=== PATIENT | female | born 1960 | race Caucasian/White ===

== ENCOUNTER 2020-02-27 04:46 | Outpatient (CLI) | payer BC, SELFPAY ==
[2020-02-27 12:59] LABS: Abs Immature Grans 0.02 10^3/uL (0.0-0.06); Absolute Basophil Count 0.03 10^3/uL (0.0-0.2); Absolute Eosinophil Count 0.11 10^3/uL (0.0-0.7); Absolute Lymphocyte Count 1.23 10^3/uL (1.2-3.4); Absolute Monocyte Count 0.35 10^3/uL (0.1-0.8); Absolute Neutrophil Count 4.09 10^3/uL (1.2-6.7); Basophils % 0.5; Eosinophils % 1.9; HCT 39.5 % (36.0-46.0); HGB 12.8 g/dL (11.2-15.7); Immature Grans % 0.3; Lymphocytes % 21.1; MCH 30.3 pg (27.0-33.0); MCHC 32.4 % (32.0-36.0); MCV 93.4 fL (80-95); MPV 9.6 fL (8.0-11.0); Neutrophils % 70.2; Nucleated RBC 0 %; Platelet Count 229 10^3/uL (130-400); RBC 4.23 10^6/uL (3.93-5.22); RDW 14.2 % (11.7-14.6); RDW-SD 47.8 fL; WBC 5.83 10^3/uL (4.4-10.8)
[2020-02-27 13:27] LABS: ALT 93 U/L (14-59); AST 68 U/L (15-37); Albumin 3.9 g/dL (3.4-5.0); Alkaline Phosphatase 134 U/L (46-116); Anion Gap 4.9 mmol/L (3-11); BUN 19 mg/dL (7-18); Bilirubin, Total 0.5 mg/dL (0.2-1.0); C-Reactive Protein 0.44 mg/dL (0.0-0.3); CO2 29.1 mmol/L (21.0-32.0); CREATININE 0.66 mg/dL (0.55-1.02); Calcium 9.1 mg/dL (8.5-10.1); Chloride 107 mmol/L (98-107); Glucose 82 mg/dL (74-106); Potassium 5.1 mmol/L (3.5-5.1); Sodium 141 mmol/L (136-145); Total Protein 7.2 g/dL (6.4-8.2)
[2020-02-27 14:15] LABS: ESR 37 mm/hr (0-30)
== END 2020-02-27 05:06 ==
PROVIDERS: PCP Emergency Medicine; Visit Provider Internal Medicine Rheumatology
DX: Z79.899 Other long term (current) drug therapy (principal)
CPT/HCPCS: 36415; 80053; 85652; 85025; 86140

== ENCOUNTER 2020-12-05 13:51 | Outpatient (CLI) | payer BC, SELFPAY ==
[2020-12-05 13:17] LABS: C-Reactive Protein 0.18 mg/dL (0.0-0.3)
[2020-12-05 15:45] LABS: ALT 30 U/L (14-59); AST 25 U/L (15-37); Alkaline Phosphatase 104 U/L (46-116); Anion Gap 9.9 mmol/L (3-11); BUN 18 mg/dL (7-18); Bilirubin, Total 0.6 mg/dL (0.2-1.0); CO2 26.1 mmol/L (21.0-32.0); CREATININE 0.8 mg/dL (0.55-1.02); Calcium 9.2 mg/dL (8.5-10.1); Chloride 107 mmol/L (98-107); Glucose 87 mg/dL (74-106); Sodium 143 mmol/L (136-145); Total Protein 7.3 g/dL (6.4-8.2)
== END 2020-12-05 13:52 | disposition home or self-care (01) ==
LOC: LOS 13:51
PROVIDERS: PCP Emergency Medicine; Visit Provider Internal Medicine Rheumatology
DX: M06.9 Rheumatoid arthritis, unspecified (principal)
CPT/HCPCS: 36415; 80053; 86140

== ENCOUNTER 2022-06-23 17:17 | Outpatient (CLI) | payer BC, SELFPAY ==
--- NOTE | 2022-06-23 17:15 | RT.EKG_ITS ---
APPROVED REPORT Exam: Resting ECG Reason for Exam: chest discomfort Patient Location: O HR:191 bpm ECG Measurements Heart Rate 191 AXIS W[place] [id number] P [id number] QRSd 65 QRS 40 QT 247 T 54 QTc 441 Conclusion Atrial fibrillation with rapid V-rate...A-rate 461 Anterior infarct, old...Q >40mS, abnormal ST-T, V2-V5 Nonspecific T abnormalities, lateral leads...T <-0.10mV, I aVL V5 V6
== END 2022-06-23 17:18 | disposition home or self-care (01) ==
LOC: DI.CM 17:18
PROVIDERS: Visit Provider Nurse Practitioner Family
DX: R07.89 Other chest pain (principal); R94.31 Abnormal electrocardiogram [ECG] [EKG]; I48.91 Unspecified atrial fibrillation; I25.2 Old myocardial infarction
CPT/HCPCS: 93010

== ENCOUNTER 2022-06-23 17:39 | Inpatient (IN) | payer BC, SELFPAY ==
[2022-06-23] VITALS (56 sets, daily range): BP systolic 141–202; BP diastolic 80–139; PULSE 104–206; RESP 19–37; TEMP 36.7; O2SAT 93–99
--- NOTE | 2022-06-23 17:30 | RT.EKG_ITS ---
APPROVED REPORT Exam: Resting ECG Reason for Exam: afib, bilateral edema Patient Location: E HR:182 bpm ECG Measurements Heart Rate 182 AXIS HI 105 P 85 QRSd 68 QRS 13 QT 234 T 65 QTc 409 Conclusion Supraventricular tachycardia...V-rate>(220-age), QRSd<120 Anterior infarct, old...Q >40mS, abnormal ST-T, V2-V5 Physician: no stemi, afib w/ rvr
--- NOTE | 2022-06-23 17:45 | DI.CT_ITS ---
Exam(s) CT CHEST PE CTA EXAM: CT CHEST PE CTA CLINICAL HISTORY: afib, sob, eval for PE. TECHNIQUE: Imaging Protocol: Axial CT angiography was performed with multi-slice acquisition and mu lti-planar and/or 3D reconstructions. CONTRAST MATERIAL: Intravenous: Omnipaque 350 contrast volume:100 mL COMPARISON: CR CHEST 2 VIEWS PA,LAT from 03/18/2017 CT ABD PELVIS WITH CONTRAST from 03/25/2017 FINDINGS: The examination is limited due to patient motion artifact. Tracheobronchial tree: Patent where visualized. Pulmonary parenchyma: There is a large right pleural effusion and a moderate size left pleural effusi on. Subjacent atelectasis is seen with areas of consolidation in the right lower lobe. There is dif fuse interstitial thickening in the lungs. Pulmonary Arteries: No evidence of filling defect to suggest pulmonary emboli. Mediastinum and Kalina: No dominant adenopathy or fluid collection. The esophagus is unremarkable. Visualized thyroid gland: Unremarkable. Pleura: There is no pneumothorax. Heart: Cardiomegaly. No coronary artery calcifications are seen. There does appear to be a small per icardial effusion. Aorta: Thoracic aorta non-dilated. No evidence of dissection. Atherosclerosis. Upper abdomen: There is a small amount of perisplenic ascites. There is contrast reflux into the IV C. There hepatic cysts again seen. Soft tissues: Unremarkable. Bones: Within normal limits for the patient's age.There is again seen a calcified lesion in the proxi mal right humerus most suggestive of an enchondroma. It is unchanged. IMPRESSION: 1. No evidence of pulmonary embolism, thoracic aortic dissection or aneurysm. 2. Findings suggestive CHF with cardiomegaly, bilateral pleural effusions and interstitial thickening . Please correlate clinically. 3. Infiltrates in the lung bases, right greater than left. This may reflect atelectasis but a superi mposed pneumonia particularly in the right lower lobe cannot be excluded. 4. Small amount of abdominal ascites. RADIATION DOSE DELIVERED: 295.49mGy.cm Total DLP DATA REPOSITORY: All CT scans at this facility are submitted to the National Radiology Data Registry (NRDR) Dose Index Registry (DIR) with the [employer] (ACR). RADIATION OPTIMIZATION: All CT scans at this facility use at least one of these dose optimization te chniques: automated exposure control; mA and/or kV adjustment per patient size (includes targeted exa ms where dose is matched to clinical indication); or iterative reconstruction.
--- NOTE | 2022-06-23 17:51 | W.ED.GENAD ---
Discharge Plan Disposition Patient Disposition: Admit to [facility] Condition: Critical Discharge Details Chief Complaint: Palpitatns Clinical Impression: Atrial fibrillation with RVR, Thyroid storm Admit Date/Time: 06/23/22 21:33 Admit Provider: Priti Dias Attending Provider: Priti Dias Primary Care Provider: Unknown,Unknown ED Provider: Jagdish Feng Medical Decision Making 61-year-old female with a past medical history of rheumatoid arthritis on methotrexate with no other significant past medical history who presents today for evaluation of cough which has been dry for the last 2 weeks, as well as leg swelling and mild shortness of breath. She denies any chest pain whatsoever. She denies any pleuritic chest pain. She denies any vomiting or diarrhea. She denies any numbness or tingling. She denies any falls or trauma. She denies any recent long trips, surgeries or procedures. She did go to see the urgent care today for evaluation, and at that time she was noted to have a heart rate oscillating between 101 190, and so she was sent here for further evaluation of potential A-fib with RVR. She denies any other complaints. She denies any new medications. She denies any history of A-fib. She denies any history of heart failure. No other modifying factors. No significant shortness of breath when she lies flat. Physical exam demonstrates 3+ peripheral edema in lower extremities, she is 190 but her blood pressure is stable currently. EKG shows evidence of atrial fibrillation with a rapid ventricular response. Will give Cardizem to start reducing the patient's heart rate. Will evaluate for other concerning etiologies with bedside echo, as well as evaluate for PE with a CTA. We will monitor closely and reassess. 10:40 PM Patient's laboratory work-up has returned, differential has expanded to now include thyroid storm. Patient's TSH is 0, and her free T4 is greater than 8 and over the detectable limits. proBNP is 14,000. Bedside echo was performed by myself and demonstrates an ejection fraction around 20%. Troponin normal. Electrolytes normal, renal function good. No white count bandemia or left shift. 2 doses of 15 mg Cardizem was given and the heart rate would drop to the 140s but then returned up to the 180s. Because of the evidence of heart failure and the concern for thyroid storm we did reach out to [facility] endocrinology and discussed the case with Dr. Vizcaino, who recommends propylthiouracil at 1000 mg, and then transitioning to 200 mg every 4 hours. We do not have any available method nasal here in the emergency department which was their preferred treatment otherwise. They refused any transport at this time secondary to full bed status. I did contact cardiology and discussed the case with Dr. Sorensen. Dr. Sorensen after review of the evidence of heart failure A-fib with RVR and thyroid storm, recommends digoxin at 0.25 mg with continued every 6 hours dosing with a maximum of 1.25 mg. They recommend avoiding/holding off on any beta-blockers or calcium channel blockers at this time. We will give her a dose of Solu-Cortef 100 mg. We did reach out to the [facility], and discussed the case with cardiology there as well, however at this time they do not have any beds available therefore I have placed the patient on the wait list. They do recommend calling back tomorrow morning. We have given 20 mg of Lasix as well. Patient remains neurologically intact. Blood pressure remains slightly hypertensive. I did discuss the case with the hospitalist Dr. Priti Alexis, she agrees with the plan. Patient will be admitted here to the ICU for continued management. I have extensively reviewed the treatment plan with the patient. I have addressed all patient concerns at this time. I have also discussed the plan with the admitting physician and they agree with the current assessment and plan and have agreed to assume responsibility for the patient. All parties demonstrate verbal understanding and agreement with our assessment and plan at this time. The documentation in this chart was dictated using [employer] dictation software. Please excuse any dictation errors. FINDINGS: Pulmonary arteries: No filling defects within the pulmonary arteries are identified to suggest pulmonary embolism. Aorta: Unremarkable. No aortic aneurysm. No aortic dissection. Thyroid: Thyroid gland appears diffusely prominent heterogeneous, but is only partially imaged on this exam, limiting evaluation. Lungs: There are regions of mild patchy ground-glass opacity throughout the lungs, as well as regions of interlobular septal thickening. There also regions of mild central peribronchial thickening. There is airspace opacity within the base of the right lower lobe, some of which represents atelectasis, but there may be underlying mild bronchopneumonia in this region as well. There are mild basilar left lower lobe airspace opacities as well, suggesting atelectasis Pleural spaces: There is a new moderate freely layering right pleural effusion having an AP dimension up to 5 cm posterior to the right lower lobe. There is also a new small free layering left pleural effusion. Heart: There is mild cardiomegaly, new since prior study. There is a new tiny pericardial effusion. There is reflux of contrast into the inferior vena cava as well as hepatic veins, suggesting elevated right heart pressures. Lymph nodes: There is no evidence of lymphadenopathy. Liver: There are few liver cysts measuring up to 2.6 x 2.4 cm, some which are mildly increased in size since prior study.. Gallbladder and bile ducts: Only a small portion of the gallbladder is imaged on this exam, but findings suggest a small calcified gallstone near the gallbladder neck on the most inferior image. There was a subcentimeter gallstone near the gallbladder fundus on prior study. Intraperitoneal space: There is new small ascites in the upper abdomen. Bones/joints: There is a partially calcified lesion within the right humeral head and neck which is only partially imaged but measures up to 2.3 x 2.3 cm. This lesion was also present on chest x-ray dated 03/18/2017. The thoracic spine demonstrates mild degenerative changes at multiple levels. There is mild anterior wedging of a few mid-lower thoracic vertebra, likely chronic. No acute fractures or subluxations are identified. Soft tissues: Unremarkable. IMPRESSION: 1. No pulmonary embolism identified. 2. Mild cardiomegaly with findings suggesting CHF including bilateral pleural effusions as well as interstitial thickening within the lungs, likely representing mild interstitial pulmonary edema. Recommend clinical correlation. 3. Basilar airspace opacities, right greater than left, most of which likely represent atelectasis but there may be superimposed mild bronchopneumonia within the base of the right lower lobe. Recommend clinical correlation. 4. New small ascites in the upper abdomen. 5. The thyroid gland appears diffusely prominent and heterogeneous, but is only partially imaged on this exam. Recommend clinical correlation. Further evaluation with thyroid ultrasound could be obtained. 6. Partially imaged partially calcified osseous lesion involving the right humeral head and neck, which was present on prior chest x-ray dated 03/18/2017. This may represent a benign enchondroma. Thank you for allowing us to participate in the care of your patient. Dictated and Authenticated by: Matty Reyes MD 06/23/2022 7:52 PM Eastern Time ([place] & [place]) HPI General Date/Time Provider Initiated Documentation: 06/23/22 17:42. HPI Narrative: 61-year-old female with a past medical history of rheumatoid arthritis on methotrexate with no other significant past medical history who presents today for evaluation of cough which has been dry for the last 2 weeks, as well as leg swelling and mild shortness of breath. She denies any chest pain whatsoever. She denies any pleuritic chest pain. She denies any vomiting or diarrhea. She denies any numbness or tingling. She denies any falls or trauma. She denies any recent long trips, surgeries or procedures. She did go to see the urgent care today for evaluation, and at that time she was noted to have a heart rate oscillating between 101 190, and so she was sent here for further evaluation of potential A-fib with RVR. She denies any other complaints. She denies any new medications. She denies any history of A-fib. She denies any history of heart failure. No other modifying factors. No significant shortness of breath when she lies flat. Related Data Home Medications Medication Instructions Recorded Confirmed methotrexate sodium 2.5 mg tablet 12 mg PO QWeek 03/18/17 06/23/22 Allergies Allergy/AdvReac Type Severity Reaction Status Date / Time No Known Allergies Allergy Unverified 06/23/22 16:46 Review of Systems All systems reviewed & are unremarkable except as noted in HPI and below PFSH All Active Problems (Updated 06/23/22 @ 23:46 by Jagdish Feng DO) Atrial fibrillation with RVR (Acute) Thyroid storm (Acute) Medical History Microcytic hypochromic anemia Rheumatoid arthritis Weight loss Surgical History Colonoscopy - MAC (04/01/17) Social History Smoking/Tobacco Use Status: Never Smoking risk assessment performed?: Yes Drug use: Never Exam Narrative Exam Narrative: 1.Const: Well-nourished, Well-developed, appearing stated age 2.Eyes: PERRL, no conjunctival injection, and symmetrical lids. 3.ENT: Atraumatic external nose and ears. Moist MM. Neck: Symmetric, trachea midline, No thyromegaly. 4.CVS: +S1/S2, No murmurs or gallops. Peripheral pulses 2+ and equal in all extremities. Brisk capillary refill in all extremities. 5.RESP: Unlabored respiratory effort. Clear to auscultation bilaterally. No wheezes rales or rhonchi 6.GI: Soft, Nontender/Nondistended, No hepatosplenomegaly. No guarding or rebound. 7.MSK: Normocephalic/Atraumatic, Extremities w/o deformity or ttp No cyanosis or clubbing, Normal movement of all extremities, 3+ pitting edema lower extremities bilaterally. No calf tenderness. 8.Skin: Warm, Dry. No rashes or lesions. 9.Neuro: geek squad manager II-XII grossly intact. Sensation grossly intact, no focal neurologic deficits. 10.Psych: (AAO) x3. Appropriate mood and affect Critical Care Time Critical Care Time Critical Care Time: Yes Total Critical Care Time: 100 Attestation: Upon my evaluation, this patient had a high probability of imminent or life-threatening deterioration, which required my direct attention, intervention, and personal management. I have personally provided 100 minutes of critical care time exclusive of time spent on separately billable procedures. Time includes review of laboratory data, radiology results, discussion with consultants, and monitoring for potential decompensation. Interventions were performed as documented.
[2022-06-23 18:21] LABS: Abs Immature Grans 0.01 10^3/uL (0.0-0.06); Absolute Basophil Count 0.02 10^3/uL (0.0-0.2); Absolute Eosinophil Count 0.05 10^3/uL (0.0-0.7); Absolute Lymphocyte Count 2.48 10^3/uL (1.2-3.4); Absolute Monocyte Count 0.59 10^3/uL (0.1-0.8); Absolute Neutrophil Count 6.21 10^3/uL (1.2-6.7); Basophils % 0.2; Eosinophils % 0.5; HCT 37.9 % (36.0-46.0); HGB 11.6 g/dL (11.2-15.7); Immature Grans % 0.1; Lymphocytes % 26.5; MCH 27.3 pg (27.0-33.0); MCHC 30.6 % (32.0-36.0); MCV 89 fL (80-95); MPV 10.9 fL (8.0-11.0); Monocytes % 6.3; Neutrophils % 66.4; Platelet Count 293 10^3/uL (130-400); RBC 4.25 10^6/uL (3.93-5.22); RDW 15.7 % (11.7-14.6); RDW-SD 50.7 fL; WBC 9.36 10^3/uL (4.4-10.8)
[2022-06-23 18:32] LABS: INR 1.2 (0.9-1.1); PTT Activated 20.8 sec (21.5-31.9); Prothrombin Time 12.3 sec (9.3-11.0)
[2022-06-23 18:41] LABS: ALT 22 U/L (14-59); AST 43 U/L (15-37); Albumin 3.6 g/dL (3.4-5.0); Alkaline Phosphatase 216 U/L (46-116); Anion Gap 11.9 mmol/L (3-11); BUN 20 mg/dL (7-18); Bilirubin, Total 1.6 mg/dL (0.2-1.0); CO2 23.1 mmol/L (21.0-32.0); CREATININE 0.5 mg/dL (0.55-1.02); Calcium 9.9 mg/dL (8.5-10.1); Chloride 106 mmol/L (98-107); Estimated GFR 105.98 (mL/min/1.73m2); Glucose 129 mg/dL (74-106); NT-proBNP 14186 pg/mL (<300); Potassium 4.5 mmol/L (3.5-5.1); Sodium 141 mmol/L (136-145); Total Protein 7.8 g/dL (6.4-8.2); Troponin I < 50 ng/L (<or=60)
[2022-06-23 18:43] LABS: TSH (W/Ref FT4) < 0.01 uIU/mL (0.36-3.74)
[2022-06-23] MEDS: dilTIAZem 25 MG/5 ML VIAL 15 MG IVP ×2 (18:44→18:56)
[2022-06-23 18:55] LABS: COVID-19 PCR Negative (Negative); Influenza A PCR Negative (Negative); Influenza B PCR Negative (Negative); RSV PCR Negative (Negative)
[2022-06-23 18:56] LABS: Source Nasopharynx
[2022-06-23] MEDS: Omnipaque 350 MG/ML 100 ML BTL IJ (19:13)
[2022-06-23] MEDS: Normal Saline - Diluent 50 ML VIAL IJ (19:19)
[2022-06-23 19:26] LABS: FREE T4 > 8.00 ng/dL (0.76-1.46)
--- NOTE | 2022-06-23 19:52 | DI.VRAD_ITS ---
PROCEDURE INFORMATION: Exam: CTA Chest With Contrast Exam date and time: 06/23/2022 7:19 PM Age: 61 years old Clinical indication: Shortness of breath and other: Afib, SOB, ; additional info: Afib, SOB, eval for pe TECHNIQUE: Imaging protocol: Computed tomographic angiography of the chest with contrast. 3D rendering (Not supervised by radiologist): MIP and/or 3D reconstructed images were created by the technologist. Radiation optimization: All CT scans at this facility use at least one of these dose optimization techniques: automated exposure control; mA and/or kV adjustment per patient size (includes targeted exams where dose is matched to clinical indication); or iterative reconstruction. Contrast material: OMNI 350; Contrast volume: 100 ml; Contrast route: INTRAVENOUS (IV); COMPARISON: The lower chest images from the CT of the abdomen and pelvis dated 03/25/2017. FINDINGS: Pulmonary arteries: No filling defects within the pulmonary arteries are identified to suggest pulmonary embolism. Aorta: Unremarkable. No aortic aneurysm. No aortic dissection. Thyroid: Thyroid gland appears diffusely prominent heterogeneous, but is only partially imaged on this exam, limiting evaluation. Lungs: There are regions of mild patchy ground-glass opacity throughout the lungs, as well as regions of interlobular septal thickening. There also regions of mild central peribronchial thickening. There is airspace opacity within the base of the right lower lobe, some of which represents atelectasis, but there may be underlying mild bronchopneumonia in this region as well. There are mild basilar left lower lobe airspace opacities as well, suggesting atelectasis. Pleural spaces: There is a new moderate freely layering right pleural effusion having an AP dimension up to 5 cm posterior to the right lower lobe. There is also a new small free layering left pleural effusion. Heart: There is mild cardiomegaly, new since prior study. There is a new tiny pericardial effusion. There is reflux of contrast into the inferior vena cava as well as hepatic veins, suggesting elevated right heart pressures. Lymph nodes: There is no evidence of lymphadenopathy. Liver: There are few liver cysts measuring up to 2.6 x 2.4 cm, some which are mildly increased in size since prior study.. Gallbladder and bile ducts: Only a small portion of the gallbladder is imaged on this exam, but findings suggest a small calcified gallstone near the gallbladder neck on the most inferior image. There was a subcentimeter gallstone near the gallbladder fundus on prior study. Intraperitoneal space: There is new small ascites in the upper abdomen. Bones/joints: There is a partially calcified lesion within the right humeral head and neck which is only partially imaged but measures up to 2.3 x 2.3 cm. This lesion was also present on chest x-ray dated 03/18/2017. The thoracic spine demonstrates mild degenerative changes at multiple levels. There is mild anterior wedging of a few mid-lower thoracic vertebra, likely chronic. No acute fractures or subluxations are identified. Soft tissues: Unremarkable. IMPRESSION: 1. No pulmonary embolism identified. 2. Mild cardiomegaly with findings suggesting CHF including bilateral pleural effusions as well as interstitial thickening within the lungs, likely representing mild interstitial pulmonary edema. Recommend clinical correlation. 3. Basilar airspace opacities, right greater than left, most of which likely represent atelectasis but there may be superimposed mild bronchopneumonia within the base of the right lower lobe. Recommend clinical correlation. 4. New small ascites in the upper abdomen. 5. The thyroid gland appears diffusely prominent and heterogeneous, but is only partially imaged on this exam. Recommend clinical correlation. Further evaluation with thyroid ultrasound could be obtained. 6. Partially imaged partially calcified osseous lesion involving the right humeral head and neck, which was present on prior chest x-ray dated 03/18/2017. This may represent a benign enchondroma. Dictated and Authenticated by: Matty Reyes MD. Ordering:ILYA Dubon MD
[2022-06-23] MEDS: Digoxin 0.5 MG/2 ML AMP 0.25 MG IVP (20:49)
[2022-06-23] MEDS: Propylthiouracil 50 MG TAB 1000 MG PO (21:04)
[2022-06-23] MEDS: Furosemide 40 MG/4 ML VIAL IVP ×2 (21:30→21:47)
[2022-06-23 21:47] LABS: Troponin I < 50 ng/L (<or=60)
[2022-06-23] MEDS: Hydrocortisone SOD SUC. 100 MG VIAL IVP (21:49)
[2022-06-23] MEDS: Hydrocortisone SOD SUC. 100 MG VIAL 200 MG IVP (23:06)
[2022-06-23] MEDS: AMIODARONE 150 MG in DEXTROSE 5%-WATER 100 ML 400 MG IV (23:08)
--- NOTE | 2022-06-23 23:30 | RT.EKG_ITS ---
APPROVED REPORT Exam: Resting ECG Reason for Exam: syncopal episode Patient Location: I HR:152 bpm ECG Measurements Heart Rate 152 AXIS ND [id number] P [id number] QRSd 75 QRS 15 QT 289 T [id number] QTc 460 Conclusion Atrial fibrillation...V-rate 89-183, irreg A-activity Borderline low voltage, extremity leads...all extremity leads <0.6mV Repolarization abnormality, prob rate related...ST dep, T neg, tachycardia
[2022-06-24] VITALS (130 sets, daily range): BP systolic 117–168; BP diastolic 59–102; PULSE 71–152; RESP 15–35; TEMP 34–36.9; O2SAT 88–98
--- NOTE | 2022-06-24 | DI.US_ITS ---
Exam(s) US THYROID EXAM: US THYROID CLINICAL HISTORY: Thyroid Storm. TECHNIQUE: Ultrasound thyroid performed using standard protocol. COMPARISON: No exams were available for comparison FINDINGS: ISTHMUS: 0.4 mm RIGHT LOBE: Size: 6.2 x 2.0 x 2.9 cm Echogenicity: Heterogeneous without discrete nodule. Vascularity: Diffusely increased vascularity. Nodules: None. LEFT LOBE: Size: 6.4 x 2.3 x 2.3 cm Echogenicity: Mildly heterogeneous. No discrete nodule is seen. Vascularity: Diffusely increased vascularity. Nodules: None. OTHER FINDINGS: None. IMPRESSION: There is enlarged heterogeneous hypervascular thyroid gland. These findings can be seen with diffuse thyroid disease such as can occur with Graves disease among other etiologies. Please correlate clinic ally. DATA REPOSITORY:
--- NOTE | 2022-06-24 | DI.US_ITS ---
APPROVED REPORT EXAM: Comprehensive 2D, Doppler, and color-flow Echocardiogram Patient Location: In-Patient Room/Bed: [id number] Votator Machine Operator: Clemencia Martin RDCS (AE) Indications: Leg edema, Bedside POCUS with low EF, A Fib, HTN Other Information Study Quality: Adequate. Technically limited study due to inability to position patient exam done sup ine bedside. Conclusion Normal left ventricular wall thickness and chamber size. Estimated ejection fraction is 45 to 50% wi th mild global hypokinesis The right ventricle is not well visualized Both atria are borderline dilated Aortic valve is mildly sclerotic trileaflet without stenosis or regurgitation Mildly thickened mitral leaflets. Mild to moderate mitral regurgitation Normal tricuspid valve with mild to moderate regurgitation. Estimated right ventricular systolic pre ssure is 39 mmHg Mildly dilated ascending aorta measuring 3.61 cm Wall motion Left Ventricle The left ventricle is normal size. Left ventricular systolic function is mildly decreased. There is n ormal left ventricular wall thickness. There is global hypokinesis of the left ventricle. There is no ventricular septal defect visualized. LVEF is 45-50%. Right Ventricle Right ventricle is not well visualized. Right ventricular systolic function could not be assessed. Th e RVSP is 38.6 mmHg. Atria Left atrium is borderline dilated. Right atrium is borderline dilated. The interatrial septum is inta ct with no evidence for an atrial septal defect. Aortic Valve The aortic valve is mildly sclerotic Aortic valve is trileaflet. No hemodynamically significant valvu lar aortic stenosis. No aortic regurgitation is present. Mitral Valve Mildly thickened mitral leaflets No evidence of mitral valve stenosis. Mild to moderate mitral regur gitation. Tricuspid Valve The tricuspid valve is normal in structure. There is no tricuspid valve stenosis. Mild to moderate tr icuspid regurgitation. Pulmonic Valve The pulmonary valve is normal in structure. There is no pulmonic valvular stenosis. Trace pulmonic re gurgitation. Great Vessels The aortic root is normal in size. The ascending aorta is mildly dilated. Aortic arch is normal in ca liber. The IVC collapses <50% with inspiration. Pericardium There is no pericardial effusion. 2D Dimensions IVSD d PLAX 0.76 cm F: 0.6-1.0 LV Vol A2C d MOD 116.0 mL LVPW d PLAX 0.82 cm F: 0.6 - 1.0 LV Vol A4C d MOD 132.3 mL LVID d PLAX 5.25 cm F: 3.8 - 5.2 LA vol/ BSA A2C s A-L 27.6 mL/m2 LVDs 3.90 cm F: 2.2 - 3.5 LA vol/ BSA A4C s A-L 32.5 mL/m2 Ao Root d 2.76 cm F: 2.7 - 3.3 LA Vol/ BSA Biplane s A-L 34.6 mL/m2 RA Area A4C 18.94 cm2 LA Area A4C s MOD 19.55 cm2 RA Vol/ BSA A4C s A-L 37.2 mL/m2 LA Area A2C s MOD 15.58 cm2 Ao Asc Diam d 3.61 cm F: 2.3 - 3.1 LV EF A4C MOD 50.3 % LV EF Teichholz 50.1 % LV EF A2C MOD 45.0 % LVEF (Julio's) 47.67 % F: 54 - 74 LV EF Biplane MOD 47.7 % LV Volume 103.02 mL F: 46 - 106 SV 60.65 mL LV Volume Index 63.59 mL/m2 F: 29 - 61 SV Index 37.56 mL/m2 LV Vol Biplane MOD 127.2 mL FS 25.60 % M-Mode TAPSE 1.62 cm (M/F) >1.7 LV Diastology MV E' medial 0.093 (>0.07 m/s) MV E Vmax 1.47 (0.4-1.3 m/s) LV E/e MED 15.75 (<14) MV E' lateral 0.106 (>0.1 m/s) LV E/e LAT 13.80 (<14) MV E/E' medial 15.79 MV E/E' lateral 13.85 Aortic Valve LVOT Area 2.62 cm2 AoV Area Vmax 2.09 cm2 LVOT Vmax 1.72 m/s AoV Area/ BSA (Vmax) 1.29 cm2/m2 LVOT Mean Bassam. 1.09 m/s SELMA Mean Bassam. 1.83 cm2 LVOT Peak Grad 11.8 mmHg SELMA Mean Bassam. Index 1.13 cm2/m2 LVOT Mean Grad 5.7 mmHg LVOT VTI 0.259 m LVOT Diam s 1.80 cm AoV Vmax 2.16 m/s Velocity Ratio 0.80 AoV Mean Bassam. 1.56 m/s AoV Peak Grad 18.6 mmHg LVOT SV 67.76 mL AoV Mean Grad 10.7 mmHg AoV VTI 0.296 m AoV Area VTI 2.29 cm2 AoV Area/ BSA (VTI) 1.42 cm/m2 Mitral Valve MV DT 153 (160-240 msec) MV PHT 44 msec MV Area PHT 4.95 cm2 MV VTI 0.260 m MV Area VTI 2.60 (4.0-6.0 cm2) Pulmonary Valve PV Vmax 1.30 (0.5-1.5 m/s) RVOT Peak Gr. 2.42 mmHg PV Peak Grad 6.8 mmHg RVOT Mean Gr. 1.10 mmHg PV Mean Grad 3.5 mmHg RVOT VTI 0.095 m PV VTI 0.170 m RVOT Vmax 0.78 m/s Tricuspid Valve TR Peak Grad 30.5 mmHg TR Vmax 2.76 m/s RA Pressure 8.00 mmHg RVSP (TR) 38.6 mmHg
[2022-06-24] MEDS: Acetaminophen 325 MG TAB 650 MG PO ×7 (00:01→23:15)
[2022-06-24] MEDS: MAGNESIUM SULFATE 2 GM/50 ML BAG IVPB (00:02)
[2022-06-24] MEDS: Cholestyramine/Aspartame PKT 1 EACH PO ×5 (00:02→23:14)
[2022-06-24] MEDS: Amiodarone in Dextrose 360 MG/200 ML BAG 33.333 MG IV (00:04)
[2022-06-24 00:30] LABS: Magnesium 1.8 mg/dL (1.8-2.4)
[2022-06-24 00:31] LABS: Creatine Kinase 53 U/L (26-192)
[2022-06-24 00:33] LABS: Bilirubin Negative (Negative); Blood Small (Negative); Clarity Clear (Clear); Glucose Negative (Negative); Ketones Negative (Negative); Leukocyte Esterase Negative (Negative); Nitrite Negative (Negative); Urobilinogen 0.2 mg/dL (Up to 0.2)
[2022-06-24 00:34] LABS: Troponin I < 50 ng/L (<or=60)
[2022-06-24 00:35] LABS: PTT Activated 29.9 sec (21.5-31.9)
[2022-06-24 00:45] LABS: Bacteria Rare HPF (Negative); C & S Indicated? No; Crystals Negative HPF (Negative); Epithelial Cells Negative HPF (Negative); Mucus Negative (Negative); Other Cells Few Renal (Negative); WBC 0-2 HPF (0-5)
[2022-06-24 00:45] LABS: Salicylate < 2.8 mg/dL (<2.8)
[2022-06-24 00:46] LABS: *AMPHETAMINES SCREEN URINE Negative (Negative); *BARBITURATES SCREEN URINE Negative (Negative); *BENZODIAZEPINES SCREEN URINE Negative (Negative); Cannabinoids THC Negative (Negative); Cocaine Screen,Urine Negative (Negative); METHADONE URINE SCREEN Negative (Negative); OPIATES URINE SCREEN Negative (Negative)
[2022-06-24 00:47] LABS: Tricyclic Antidepressants Negative (Negative)
--- NOTE | 2022-06-24 00:58 | HPE_ITS ---
Date of service: 06/23/22 Time of Service: 22:54 Assessment and Plan Assessment and plan (1) Thyroid storm: Status: Acute Assessment and plan: Unclear trigger of thyroid storm with no underlying thyroid disease. Raza criteria for thyroid storm = 60; any score over 45 is highly suggestive of thyroid storm. Will work up common causes including sepsis, thyroid adenoma, thyroid goiter, Graves', aspirin or other drug toxicity. We do not have methimazole at [facility] currently, which would be the preferred drug of choice in her, particularly given the elevated bilirubin. We will treat with a PTU regimen, but will ask pharmacy tomorrow if it is possible to get methimazole. In addition will start hydrocortisone 100mg q8h, scheduled tyelenol and cholestyramine. We do not have iodine here,so will not be adding this. The hydrocortisone blocks release of T4 from the thyroid and also blocks peripheral activation of T4 into T3. PTU, as we know blocks thyroid hormone synthesis. Cholestyramine binds the thyroid hormone in the gut and prevents eneterohepatic reabsorption. The standing Tyelenol is to prevent any hyperthermia. Patient should show clinical improvement within 24-48 hours; if she is not well on her way to improvement by this time she will need transfer to tertiary center. - PTU - s/p 1000mg load, will continue with 200mg q4h - recommend transitioning to methimazole as soon as possible - hydrocortisone 100mg q8h - cholestyramine 4grams q6h - salycilate level, Utox, total and free t4 in am, fu T3 level - UA, blood cultures, DIC labs, daily CBC, Mg and CMP - thyroid antibodies - thyroid ultrasound (2) Atrial fibrillation with RVR: Status: Acute Assessment and plan: This is likely due to thyroid storm. Based on her story, I am concerned she has been in A.fib for the preceding 2-3 weeks. She was given digoxin in the ED which was not overly effective. Beta-blockers are contraindicated in her due to her acute systolic heart failure. Although it seems counter-intuitive, I believe the best medication for her at this time is amiodarone. This is not a good senior sales representative solution in general, and even worse for her as amiodarone causes thyrotoxicity, but a few days on amiodarone seems to be required to stabilize her and it was started after PTU as to limit the posibility of thyrotoxicosis (amiodaone contains iodine). Digoxin will be continued, and it may be effective with time, however ther eis likely increased renal clearance with her thyroid storm therefore an increased volume of distribution and would then likely require pretty high doses to be effective. Additionally, the higher sympathetic tone of these patients could render dig less effective. - s/p 250mcg dig - s/p 150mg amio - on 1mg amio infusion - recommend stopping as soon as possible - will continue dig 250mcg q6h - if this does not control her HR, we will be left with deep sedation and intubation (3) Hyperbilirubinemia: Status: Acute Assessment and plan: Will monitor this closely. Again recommend attempting to get methimazole from a local hospital. (4) Respiratory failure with hypoxia: Status: Acute Assessment and plan: This is due to volume overload from HFrEF. She is diuresing well from ED Lasix doses. I will continue with another dose in the morning. Ideally she should be 2L negative tomorrow. - Lasix 40mg IV daily am - consider adding/peeling back as needed for UOP - supplemental O2 as needed (5) Severe hypertension: Status: Acute Assessment and plan: Again due to thyroid storm. I am hoping with treatment this will improve as well. I am not adding any agents at this time, as I do think treating the underlying cause will be effective enough. (6) Heart failure, systolic, with acute decompensation: Status: Acute Assessment and plan: New onset, new diagnosis. Bedside echo with global hypokinesia and a severely reduced EF - 20-30%. IVC plump, RV and RA dilated consistent with volume overload. I do worry about a tachydarcia induced cardiomyopathy and some degree of sustained damage since I beleive she has had tachycardia, to varying degrees, for weeks. - echo tomorrow - recommend in house cardiology consultation - will need follow up to ensure return of normal cardiac function after this acute insult (7) Pleural effusion due to CHF (congestive heart failure): Status: Acute Assessment and plan: Due to volume overload, should improve with diuresis. History of Present Illness Narrative: This is a healthy 61 yo with RA on methotrexate who presented to the ED with 2-3 weeks of cough, chest tightness and leg swelling. She has no cardiac history, nor any other medical history aside from well controlled RA. Upon arrival to the ED she was found to have significant tachycardia with an atrial fibrillation rhythm. She was also significantly hypertensive. Her lab work was revealing for immeasurably low TSH and a T4 over 8. Her CTPE found no PE, but with bilateral pleural effusions, vascular engorgement with diffuse septal thickening, co ncerning for volume overload. I discussed this care with the ED physican and we both agreed this is likely thyroid storm causing systolic heart failure (Dr. Feng's POCUS found a decreased EF). Endocrinology and cardiology were both consulted. [facility] does not carry methimazole (which would be first line given mild bilirubin elevations, so she was given a loading dose of PTU. Beta blockers are being avoided due to her new onset, acute HFrEF. I recommend started hydrocortisone as well. She was also given Lasix in the ED. For her rapid A.fib (up to 200bpm) cardiology recommended digoxin so she was given 0.25, which was given by the ED. She is relatively asymptomatic given her hemodynamic aberrancies. She mentions some palpitations in the prior 2-3 weeks. She denies having any recent illnesses (although she though the cough and chest tightness was a cold - did not have other URI symptoms, however), denies any drug use, denies taking a lot of aspirin, is not on chronic amiodarone, no past history of thyroid issues. Review of Systems All systems reviewed & are unremarkable except as noted in HPI and below PFSH All Active Problems (Updated 06/24/22 @ 01:24 by Priti Dias MD) Pleural effusion due to CHF (congestive heart failure) (Acute) Heart failure, systolic, with acute decompensation (Acute) Severe hypertension (Acute) Respiratory failure with hypoxia (Acute) Hyperbilirubinemia (Acute) Atrial fibrillation with RVR (Acute) Thyroid storm (Acute) Medical History Microcytic hypochromic anemia Rheumatoid arthritis Weight loss Surgical History Colonoscopy - MAC (04/01/17) Social History Smoking/Tobacco Use Status: Never Smoking risk assessment performed?: Yes Drug use: Never Meds Allergies and Home Medications Allergies Allergy/AdvReac Type Severity Reaction Status Date / Time No Known Allergies Allergy Unverified 06/23/22 16:46 Home Medications Medication Instructions Recorded Confirmed Type methotrexate sodium 2.5 mg tablet 12 mg PO QWeek 03/18/17 06/23/22 History Exam Narrative Exam Narrative: POCUS 06/23/22: All views obtained with excellent windows. Global hypokinesis with RV and RA dilation consistent with volume overload. NADIYA measure 2.4cm with no respirophasic variation. Estimated EF 20-30% at bedside. Gen: NAD, normal respiratory effort, well-nourished HENT: PERRL, +JVD, dry lips Chest: No respiratory distress, normal appearance of chest, bilateral crackles, diminished breath sounds at bases Heart: severe tachycardia Abdomen: Non-distended, soft, non tender Extremities: No clubbing, 3+ pitting edema up legs, no cyanosis, no rashes Neuro: AAOx3 , non focal Psych: cooperative, appropriate mental affect Results Labs 06/23/22 18:12 06/23/22 18:12 Labs: Laboratory Results - last 24 hr 06/23/22 06/23/22 06/23/22 18:12 18:12 18:12 WBC 9.36 RBC 4.25 Hgb 11.6 Hct 37.9 MCV 89 MCH 27.3 MCHC 30.6 L RDW 15.7 H Plt Count 293 MPV 10.9 Immature Gran % 0.1 Neutrophils % 66.4 Lymphocytes % 26.5 Monocytes % 6.3 Eosinophils % 0.5 Basophils % 0.2 Nucleated RBC % 0.0 Absolute Neutrophils 6.21 Absolute Lymphocytes 2.48 Absolute Monocytes 0.59 Absolute Eosinophils 0.05 Absolute Basophils 0.02 PT INR APTT Sodium 141 Potassium 4.5 Chloride 106 Carbon Dioxide 23.1 Anion Gap 11.9 H BUN 20 H Creatinine 0.5 L Est GFR (CKD-EPI 2020) 105.98 Glucose 129 H Calcium 9.9 Phosphorus Magnesium Total Bilirubin 1.6 H AST 43 H ALT 22 Alkaline Phosphatase 216 H Creatine Kinase Troponin I < 50 NT-Pro-B Natriuret Pep 37955 H Total Protein 7.8 Albumin 3.6 TSH < 0.01 L Free T4 > 8.00 H Urine Color Urine Clarity Urine pH Ur Specific [place] Urine Protein Urine Ketones Urine Blood Urine Nitrite Urine Bilirubin Urine Urobilinogen Ur Leukocyte Esterase Urine RBC Urine WBC Ur Epithelial Cells Urine Crystals Urine Bacteria Urine Mucus Urine Other Ur Culture Indicated? Urine Glucose Salicylates Urine Opiates Screen Urine Methadone Screen Ur Barbiturates Screen Ur Tricyclics Screen Ur Amphetamines Screen U Benzodiazepines Scrn Urine Cocaine Screen Ur THC Screen COVID-19 Source Nasopharynx SARS-CoV-2 (PCR) Negative Influenza Type A (PCR) Negative Influenza Type B (PCR) Negative RSV (PCR) Negative 06/23/22 06/23/22 06/23/22 18:12 21:20 23:50 WBC RBC Hgb Hct MCV MCH MCHC RDW Plt Count MPV Immature Gran % Neutrophils % Lymphocytes % Monocytes % Eosinophils % Basophils % Nucleated RBC % Absolute Neutrophils Absolute Lymphocytes Absolute Monocytes Absolute Eosinophils Absolute Basophils PT 12.3 H INR 1.2 H APTT 20.8 L Sodium Potassium Chloride Carbon Dioxide Anion Gap BUN Creatinine Est GFR (CKD-EPI 2020) Glucose Calcium Phosphorus Magnesium Total Bilirubin AST ALT Alkaline Phosphatase Creatine Kinase Troponin I < 50 NT-Pro-B Natriuret Pep Total Protein Albumin TSH Free T4 Urine Color Urine Clarity Urine pH Ur Specific [place] Urine Protein Urine Ketones Urine Blood Urine Nitrite Urine Bilirubin Urine Urobilinogen Ur Leukocyte Esterase Urine RBC Urine WBC Ur Epithelial Cells Urine Crystals Urine Bacteria Urine Mucus Urine Other Ur Culture Indicated? Urine Glucose Salicylates Urine Opiates Screen Negative Urine Methadone Screen Negative Ur Barbiturates Screen Negative Ur Tricyclics Screen Negative Ur Amphetamines Screen Negative U Benzodiazepines Scrn Negative Urine Cocaine Screen Negative Ur THC Screen Negative COVID-19 Source SARS-CoV-2 (PCR) Influenza Type A (PCR) Influenza Type B (PCR) RSV (PCR) 06/23/22 06/23/22 06/23/22 23:50 23:55 23:55 WBC RBC Hgb Hct MCV MCH MCHC RDW Plt Count MPV Immature Gran % Neutrophils % Lymphocytes % Monocytes % Eosinophils % Basophils % Nucleated RBC % Absolute Neutrophils Absolute Lymphocytes Absolute Monocytes Absolute Eosinophils Absolute Basophils PT INR APTT Sodium Potassium Chloride Carbon Dioxide Anion Gap BUN Creatinine Est GFR (CKD-EPI 2020) Glucose Calcium Phosphorus Magnesium Total Bilirubin AST ALT Alkaline Phosphatase Creatine Kinase 53 Troponin I < 50 NT-Pro-B Natriuret Pep Total Protein Albumin TSH Free T4 Urine Color Yellow Urine Clarity Clear Urine pH 5.0 Ur Specific [place] 1.010 Urine Protein Negative Urine Ketones Negative Urine Blood Small H Urine Nitrite Negative Urine Bilirubin Negative Urine Urobilinogen 0.2 Ur Leukocyte Esterase Negative Urine RBC 3-5 H Urine WBC 0-2 Ur Epithelial Cells Negative Urine Crystals Negative Urine Bacteria Rare Urine Mucus Negative Urine Other Few Renal Ur Culture Indicated? No Urine Glucose Negative Salicylates Urine Opiates Screen Urine Methadone Screen Ur Barbiturates Screen Ur Tricyclics Screen Ur Amphetamines Screen U Benzodiazepines Scrn Urine Cocaine Screen Ur THC Screen COVID-19 Source SARS-CoV-2 (PCR) Influenza Type A (PCR) Influenza Type B (PCR) RSV (PCR) 06/23/22 06/23/22 06/23/22 23:55 23:55 23:55 WBC RBC Hgb Hct MCV MCH MCHC RDW Plt Count MPV Immature Gran % Neutrophils % Lymphocytes % Monocytes % Eosinophils % Basophils % Nucleated RBC % Absolute Neutrophils Absolute Lymphocytes Absolute Monocytes Absolute Eosinophils Absolute Basophils PT INR APTT 29.9 Sodium Potassium Chloride Carbon Dioxide Anion Gap BUN Creatinine Est GFR (CKD-EPI 2020) Glucose Calcium Phosphorus 4.0 Magnesium 1.8 Total Bilirubin AST ALT Alkaline Phosphatase Creatine Kinase Troponin I NT-Pro-B Natriuret Pep Total Protein Albumin TSH Free T4 Urine Color Urine Clarity Urine pH Ur Specific [place] Urine Protein Urine Ketones Urine Blood Urine Nitrite Urine Bilirubin Urine Urobilinogen Ur Leukocyte Esterase Urine RBC Urine WBC Ur Epithelial Cells Urine Crystals Urine Bacteria Urine Mucus Urine Other Ur Culture Indicated? Urine Glucose Salicylates < 2.8 Urine Opiates Screen Urine Methadone Screen Ur Barbiturates Screen Ur Tricyclics Screen Ur Amphetamines Screen U Benzodiazepines Scrn Urine Cocaine Screen Ur THC Screen COVID-19 Source SARS-CoV-2 (PCR) Influenza Type A (PCR) Influenza Type B (PCR) RSV (PCR) Last Vital Signs Temp 36.7 C 06/23/22 17:40 Pulse 172 H 06/23/22 22:30 Resp 23 06/23/22 22:40 BP 179/108 H 06/23/22 22:30 Pulse Ox 97 06/23/22 22:40 Time Spent Time spent with Patient: 55-74 minutes Time was spent: preparing to see the patient(eg.review tests), obtaining and/or reviewing separately otained hiistory, ordering medications,tests, procedures, referring, communicating with other health wound care nurse, indepentently interpreting results and counseling the patient
[2022-06-24 01:01] LABS: D-Dimer 1642 ng/mlFEU (<500)
--- NOTE | 2022-06-24 01:55 | W.EVENT ---
Date of service: 06/23/22 Time of Service: 23:15 Event Note: Patient sitting on commode urinating upon arrival to ICU. Her HR was 200bpm and SBP 190. I asked if we could get her into bed as we would place a [place] but that with her vitals, she needs to be in bed. She agreed and a few moments later she was seen to hunch over and become unresponsive. I lifted her upper body and head. Her eyes were gloazed and staring off. Her mouth was open and she was totally unresponsive. I pulled the commode adjacent to the bed and myself and RN lifted her from commode and laid her in bed flat. I asked that a code be called as her rhythm did change from A.fib to what was concerning for ventricular tachycardia. A Code Blue was called. Pads were placed, intubation equipment ready, Dr. Feng from the ED reported as did [facility] nursing staff and RT. As I was beginning to position the bed for intubation as patient remained unresponsive, she slowly began to awaken. Her blood pressure and heart rate had dropped considerably during this episode. A neurological assessment was performed and there were no focal neurological signs and the patient was mentating appropriately. An EKG found A. fib with no concerning ST-T changes. Her blood pressure and heart rate slowly began climbing to their prior values. Code Blue completed and responders able to return to their departments. Patient did not have any further episodes for the next hour. Labs were drawn, including a repeat troponin, which was negative. Pennington was placed. Her heart rate again crept up to 180bpm so I instructed RN to restart amiodarone bolus (was paused due to event). This bolus did help, however her rates were still around 150bpm for the next 30 minutes or so, so I instructed RN to start amiodarone infusion. On repeat POCUS, her cardiac function appeared consistent with prior exam. Patient mentating, answering questions appropriately and asymptomatic. She denies chest pains or change in dyspnea. No headache or change in vision. At time of me leaving her room, her heart rate was 130-140bpm with a blood pressure of 150's/100's. I felt it reasonable to leave her to rest. Assessment: The only explanation I have for this episode is post-micturation syncope. She recovered quickly and I did see sudden drops in heart rate and blood pressure consistent with a syncopal event. She has not had further episodes. I see no indication for a head CT with her totally normal neuro exam and lack of trauma of fall. She is to remain in bed for the remained of the night. Time Spent with Patient Time spent in critical care(minutes): 60 Time Spent Included: Chart review, Documenting critically ill care, Time at immediate bedside and Discussing critically ill care with other medical staff
[2022-06-24] MEDS: Propylthiouracil 50 MG TAB 200 MG PO ×2 (02:13→06:01)
[2022-06-24] MEDS: Digoxin 0.5 MG/2 ML AMP 0.25 MG IVP ×2 (04:28→09:19)
[2022-06-24] MEDS: Hydrocortisone SOD SUC. 100 MG VIAL IVP ×3 (06:01→23:16)
[2022-06-24] MEDS: Amiodarone in Dextrose 360 MG/200 ML BAG 16.667 MG IV (06:02)
[2022-06-24 06:25] LABS: HGB 10.3 g/dL (11.2-15.7); MCH 27.2 pg (27.0-33.0); MCHC 31.2 % (32.0-36.0); MCV 87 fL (80-95); MPV 11.4 fL (8.0-11.0); Platelet Count 171 10^3/uL (130-400); RBC 3.78 10^6/uL (3.93-5.22); RDW 15.5 % (11.7-14.6); WBC 7.56 10^3/uL (4.4-10.8)
[2022-06-24 06:51] LABS: ALT 20 U/L (14-59); AST 29 U/L (15-37); Albumin 3.2 g/dL (3.4-5.0); Alkaline Phosphatase 187 U/L (46-116); Anion Gap 13.3 mmol/L (3-11); BUN 15 mg/dL (7-18); Bilirubin, Total 1.8 mg/dL (0.2-1.0); CO2 24.7 mmol/L (21.0-32.0); CREATININE 0.5 mg/dL (0.55-1.02); Calcium 9.3 mg/dL (8.5-10.1); Chloride 104 mmol/L (98-107); Estimated GFR 105.98 (mL/min/1.73m2); Glucose 166 mg/dL (74-106); Magnesium 2.1 mg/dL (1.8-2.4); Potassium 3.3 mmol/L (3.5-5.1); Sodium 142 mmol/L (136-145); Total Protein 6.5 g/dL (6.4-8.2)
[2022-06-24 06:53] LABS: T4 22.2 ug/dL (4.7-13.3)
[2022-06-24 06:54] LABS: FREE T4 > 8.00 ng/dL (0.76-1.46)
[2022-06-24 07:39] LABS: PTT Activated 62.1 sec (21.5-31.9)
[2022-06-24] MEDS: Furosemide 40 MG/4 ML VIAL IVP (08:59)
[2022-06-24] MEDS: Normal Saline Flush 10 ML SYR IVP ×4 (09:00→23:16)
--- NOTE | 2022-06-24 09:07 | INITIAL_ITS ---
- If Service Date Differs Date of service: 06/24/22 Time of Service: 09:07 Care Management Initial Assess REASON FOR HOSPITALIZATION:: Thyroid storm PAST MEDICAL HISTORY/PAST SURGICAL HISTORY:: All Active Problems (Updated 06/24/22 @ 01:24 by Priti Dias MD). Pleural effusion due to CHF (congestive heart failure) (Acute). Heart failure, systolic, with acute decompensation (Acute). Severe hypertension (Acute). Respiratory failure with hypoxia (Acute). Hyperbilirubinemia (Acute). Atrial fibrillation with RVR (Acute). Thyroid storm (Acute). Medical History . Microcytic hypochromic anemia. Rheumatoid arthritis. Weight loss. Surgical History . Colonoscopy - MAC (04/01/17) PREVIOUS FUNCTIONAL STATUS/SOCIAL/FAMILY SUPPORTS:: Sindhu lives in [place] with her Jason, who is known as Todd. She has one son, Jamil, who lives in [facility] and and is very supportive. 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 She is independent at baseline and does not receive any community services. CURRENT FUNCTIONAL STATUS:: Sindhu was sitting up in bed in the ICU when CM met with her. She interacted well and was receptive to conversation. Sindhu remains ICU level of care and requires close monitoring and treatment for the thyoid storm she presented with. She informed that she feels 150% better than she has for the past few weeks. She verbalized that she does not currently have any services at home and does not feel she will need them upon discharge. The providers have been attempting to transfer Tori to a tertiary care facility however, no beds have been available. Fortunately, she has stabilized since last evening when a rapid response was called. She verbalized that her preference would be to remain at [facility] with the providers continuing to consult with [facility] or [facility]. ADVANCE DIRECTIVES:: none on file Has patient been provided with info about the portal/API?: Yes Did the patient sign up for the portal?: No CODE STATUS:: Full Code INSURANCE COVERAGE / FINANCIAL ISSUES:: [employer] CURRENT HOME/COMMUNITY SERVICES/EQUIPMENT:: none PRIMARY CARE PHYSICIAN:: Loga Michelle Dege - formerly was Flor Willson's patient POTENTIAL DISCHARGE NEEDS:: Follow up with Endinocrinology, cardiology, PCP and discharge plan of care. PATIENT/FAMILY EDUCATION NEEDS:: Review of discharge instructions, activity, limitations, medications, diet, follow up plan and discuss Ask Me Three. ANTICIPATED BARRIERS TO DISCHARGE:: availability of tertiary care bed TRANSPORTATION:: to be determined by disposition PLAN:: Sindhu remains critically ill in the ICU. Requests have been made to [facility] and [facility] to transfer Sindhu but no beds are currently available. If she returns home, she will likely not require any additional services and will transport with family. CM will follow and assess for ongoing discharge concerns.
[2022-06-24] MEDS: methIMAzole 5 MG TAB 20 MG PO ×4 (10:22→23:15)
[2022-06-24] MEDS: Propranolol 40 MG TAB PO ×3 (12:25→23:14)
--- NOTE | 2022-06-24 13:15 | RT.EKG_ITS ---
APPROVED REPORT Exam: Resting ECG Reason for Exam: Prolonged QT Patient Location: I HR:92 bpm ECG Measurements Heart Rate 92 AXIS MO [id number] P [id number] QRSd 56 QRS 79 QT 354 T -27 QTc 438 Conclusion Atrial fibrillation...? atrial activity Diffuse nondiagnostic ST-T abnormalities Long QTc
[2022-06-24 13:29] LABS: PTT Activated 47.9 sec (21.5-31.9)
[2022-06-24] MEDS: Apixaban 5 MG TAB PO ×2 (13:48→20:24)
--- NOTE | 2022-06-24 14:12 | CHAPLAIN ---
Sindhu was sitting up in bed when I visited. She was pleasant and easily engaged in a conversation. She is feeling much better today, following a rapid response called for her last night. 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 Todd's sister Kimber, who was also closed to Sindhu, was a patient here about two months ago, and then went [facility] for hospice care. Sindhu said they were able to visit Kimber every day she was there, and that Kimber received good care there. Sindhu is dealing with a thyroid storm here, and not beds are available at [facility] or [facility]. According to Care Management notes, Sindhu is fine with staying here and having the hospitalist consult with specialist at [facility] or [facility].
[2022-06-24 17:28] LABS: Fibrinogen 274 mg/dL (171-384)
[2022-06-24 17:54] LABS: T3, Total 557 ng/dL (97-169)
[2022-06-24 18:08] LABS: Thyroglobulin Antibody 66 U/mL (<=60); Thyroperoxidase Antibody >1300 U/mL (<=60)
[2022-06-24] MEDS: Potassium Chloride 20 MEQ TABCR PO (20:24)
[2022-06-25] VITALS (33 sets, daily range): BP systolic 120–159; BP diastolic 61–98; PULSE 69–110; RESP 16–34; TEMP 35.6–36.6; O2SAT 91–98
[2022-06-25] MEDS: Acetaminophen 325 MG TAB 650 MG PO ×3 (03:25→12:17)
[2022-06-25] MEDS: methIMAzole 5 MG TAB 20 MG PO ×4 (03:25→14:18)
[2022-06-25] MEDS: Hydrocortisone SOD SUC. 100 MG VIAL IVP ×3 (06:47→21:06)
[2022-06-25] MEDS: Propranolol 40 MG TAB PO ×2 (06:47→12:17)
[2022-06-25] MEDS: Cholestyramine/Aspartame PKT 1 EACH PO ×2 (06:47→11:09)
[2022-06-25 07:19] LABS: Anion Gap 6.7 mmol/L (3-11); BUN 27 mg/dL (7-18); CO2 27.3 mmol/L (21.0-32.0); CREATININE 0.6 mg/dL (0.55-1.02); Calcium 9.1 mg/dL (8.5-10.1); Chloride 106 mmol/L (98-107); Estimated GFR 101.42 (mL/min/1.73m2); Glucose 156 mg/dL (74-106); Potassium 3.7 mmol/L (3.5-5.1); Sodium 140 mmol/L (136-145)
[2022-06-25] MEDS: Potassium Chloride 20 MEQ TABCR PO (08:51)
[2022-06-25] MEDS: Apixaban 5 MG TAB PO ×2 (08:51→20:28)
[2022-06-25] MEDS: Furosemide 40 MG/4 ML VIAL IVP (08:51)
[2022-06-25] MEDS: Normal Saline Flush 10 ML SYR IVP ×3 (08:51→21:06)
--- NOTE | 2022-06-25 10:18 | CMPROGNOTE_ITS ---
- If Service Date Differs Date of service: 06/25/22 Time of Service: 10:18 Care Management Progress Note S/O:Sindhu was sitting up in a chair visiting with a friend when CM met with her. She was smiling and pleasant and denied the need for any assistance or services. Clinically, Sindhu has shown improvement. Her heart rate has been well controlled running mostly in the 70s and 80s. Per provider, she may be discharged later today or tomorrow if Endocrinology at [facility] is in agreement with the plan to transition her to oral medications. A: Sindhu is a 61 year old woman admitted on 06/23/22 with thyroid storm P:Sindhu remains in the ICU but has shown improvement. Requests were made to [facility] and [facility] yesterday to transfer Sindhu but no beds were available. If she returns home, she will likely not require any additional services and will transport with family. CM will follow and assess for ongoing discharge concerns.
[2022-06-25 12:42] LABS: Lab Add On Test DONE
[2022-06-25 13:26] LABS: Bilirubin, Total 0.7 mg/dL (0.2-1.0)
[2022-06-25 16:17] LABS: FREE T4 4.06 ng/dL (0.76-1.46)
--- NOTE | 2022-06-25 17:18 | W.PM.PROGNOT ---
Date of Service Date of service: 06/25/22 Time of Service: 17:18 Assessment and Plan Assessment and plan (1) Thyroid storm: Status: Acute Assessment and plan: Unclear trigger of thyroid storm with no underlying thyroid disease. Raza criteria for thyroid storm = 60; any score over 45 is highly suggestive of thyroid storm. Will work up common causes including sepsis, thyroid adenoma, thyroid goiter, Graves', aspirin or other drug toxicity. We do not have methimazole at [facility] currently, which would be the preferred drug of choice in her, particularly given the elevated bilirubin. We will treat with a PTU regimen, but will ask pharmacy tomorrow if it is possible to get methimazole. In addition will start hydrocortisone 100mg q8h, scheduled tyelenol and cholestyramine. We do not have iodine here,so will not be adding this. The hydrocortisone blocks release of T4 from the thyroid and also blocks peripheral activation of T4 into T3. PTU, as we know blocks thyroid hormone synthesis. Cholestyramine binds the thyroid hormone in the gut and prevents eneterohepatic reabsorption. The standing Tyelenol is to prevent any hyperthermia. Patient should show clinical improvement within 24-48 hours; if she is not well on her way to improvement by this time she will need transfer to tertiary center. Admission eval and meds: - PTU - s/p 1000mg load, will continue with 200mg q4h - recommend transitioning to methimazole as soon as possible - hydrocortisone 100mg q8h - cholestyramine 4grams q6h - salycilate level, Utox, total and free t4 in am, fu T3 level - UA, blood cultures, DIC labs, daily CBC, Mg and CMP - thyroid antibodies - thyroid ultrasound Significantly improved. Free T4 now 4.06. HR afib with rate controlled. Echocardiogram: ormal left ventricular wall thickness and chamber size.? Estimated ejection fraction is 45 to 50% with mild global hypokinesis Thyroid US: There is enlarged heterogeneous hypervascular thyroid gland. These findings can be seen with diffuse thyroid disease such as can occur with Graves disease among other etiologies [place] [facility] [place] Arabella Vizcaino. She would like to see the patient as an urgent f/u next week; referral sent. Recommendations made by endo. and initiated: 1. Change methimazol to 40mg daily. 2. Change from propanolol to Atenolol 25mg BID. 3. Cont IV steroid tonight and if Free T4 continues to decrease tomorrow can stop the steroid. 4. Stop cholestyramine and Iodine. (2) Atrial fibrillation with RVR: Status: Acute Assessment and plan: This is likely due to thyroid storm. Based on her story, I am concerned she has been in A.fib for the preceding 2-3 weeks. She was given digoxin in the ED which was not overly effective. Beta-blockers are contraindicated in her due to her acute systolic heart failure. Although it seems counter-intuitive, I believe the best medication for her at this time is amiodarone. This is not a good residential solution in general, and even worse for her as amiodarone causes thyrotoxicity, but a few days on amiodarone seems to be required to stabilize her and it was started after PTU as to limit the posibility of thyrotoxicosis (amiodaone contains iodine). Digoxin will be continued, and it may be effective with time, however ther eis likely increased renal clearance with her thyroid storm therefore an increased volume of distribution and would then likely require pretty high doses to be effective. Additionally, the higher sympathetic tone of these patients could render dig less effective. Admission orders: - s/p 250mcg dig - s/p 150mg amio - on 1mg amio infusion - recommend stopping as soon as possible - will continue dig 250mcg q6h - if this does not control her HR, we will be left with deep sedation and intubation Subsequent actions: 1. stopped Digoxin and completed amniodarone infusion and then stopped amnio. 2. Continued apixiban. 3. Diuresing well; decreased IV lasix to 20mg daily starting on 06/26. Decreased supplemental K+. May not need to d/c on lasix. (3) Hyperbilirubinemia: Status: Acute Assessment and plan: Monitored and now normal. (4) Respiratory failure with hypoxia: Status: Acute Assessment and plan: This is due to volume overload from HFrEF. She is diuresing well with Lasix doses. Decreased dosing. Now on RA w/o dyspnea. (5) Severe hypertension: Status: Acute Assessment and plan: Again due to thyroid storm. Now normalizing with SBP today in the 120-159 range. Primarily in the 130's. (6) Heart failure, systolic, with acute decompensation: Status: Acute Assessment and plan: New onset, new diagnosis. Bedside echo with global hypokinesia and a severely reduced EF - 20-30%. IVC plump, RV and RA dilated consistent with volume overload. I do worry about a tachydarcia induced cardiomyopathy and some degree of sustained damage since I beleive she has had tachycardia, to varying degrees, for weeks. Now that rate controlled, echocardiogram showed good EF: see above. Subjective Subjective Patient reports: no new complaints, feels better, tolerating a regular diet and afebrile; denies diarrhea, nausea, vomiting or shortness of breath Exam Narrative Exam Narrative: Gen: NAD, normal respiratory effort, well-nourished. Pleasant and conversant. HENT: PERRL, no JVD. Chest: No respiratory distress, normal appearance of chest, clear breath sounds. Nonlabored breathing Heart: Irreg Irreg Abdomen: Non-distended, soft, non tender Extremities: No clubbing, 1+ pitting edema up legs, no cyanosis, no rashes Neuro: AAOx3 , non focal Psych: cooperative, appropriate mental affect Objective Last Vital Signs Temp 35.6 C L 06/25/22 12:00 Pulse 88 06/25/22 14:00 Resp 23 06/25/22 14:00 BP 138/78 06/25/22 14:00 Pulse Ox 92 06/25/22 08:01 Laboratory Results - last 24 hr 06/23/22 06/24/22 06/24/22 18:12 05:36 07:00 Fibrinogen 274 Sodium Potassium Chloride Carbon Dioxide Anion Gap BUN Creatinine Est GFR (CKD-EPI 2020) Glucose Calcium Total Bilirubin Free T4 Total T3 557 H Thyroperoxidase Ab >1300 H Thyroglobulin Antibody 66 H Add-On Test Request 06/25/22 06/25/22 06/25/22 06:20 06:20 15:30 Fibrinogen Sodium 140 Potassium 3.7 Chloride 106 Carbon Dioxide 27.3 Anion Gap 6.7 BUN 27 H Creatinine 0.6 Est GFR (CKD-EPI 2020) 101.42 Glucose 156 H Calcium 9.1 Total Bilirubin 0.7 Free T4 4.06 H Total T3 Thyroperoxidase Ab Thyroglobulin Antibody Add-On Test Request 06/25/22 Unknown Fibrinogen Sodium Potassium Chloride Carbon Dioxide Anion Gap BUN Creatinine Est GFR (CKD-EPI 2020) Glucose Calcium Total Bilirubin Free T4 Total T3 Thyroperoxidase Ab Thyroglobulin Antibody Add-On Test Request DONE Time Spent with Patient Time Spent with Patient: 35-49 minutes Time was spent: preparing to see the patient(eg.review tests), ordering medications,tests, procedures, referring, communicating with other health home care coordinator, indepentently interpreting results and counseling the patient
[2022-06-25] MEDS: Atenolol 25 MG TAB PO (20:28)
[2022-06-26] VITALS (8 sets, daily range): BP systolic 127–167; BP diastolic 64–79; PULSE 80–105; RESP 12–19; TEMP 36.1–36.5; O2SAT 93–100
[2022-06-26] MEDS: Hydrocortisone SOD SUC. 100 MG VIAL IVP (05:23)
[2022-06-26] MEDS: Normal Saline Flush 10 ML SYR IVP ×2 (05:23→07:52)
[2022-06-26] MEDS: Atenolol 25 MG TAB PO (07:52)
[2022-06-26] MEDS: Furosemide 20 MG/2 ML VIAL IVP (07:52)
[2022-06-26] MEDS: Potassium Chloride 20 MEQ TABCR PO (07:52)
[2022-06-26] MEDS: Apixaban 5 MG TAB PO (07:52)
[2022-06-26 07:58] LABS: Anion Gap 1.9 mmol/L (3-11); BUN 34 mg/dL (7-18); CO2 28.1 mmol/L (21.0-32.0); CREATININE 0.6 mg/dL (0.55-1.02); Calcium 9.5 mg/dL (8.5-10.1); Chloride 110 mmol/L (98-107); Estimated GFR 101.42 (mL/min/1.73m2); Glucose 140 mg/dL (74-106); Potassium 3.5 mmol/L (3.5-5.1); Sodium 140 mmol/L (136-145)
--- NOTE | 2022-06-26 10:30 | DSE_ITS ---
Date of service: 06/26/22 Time of Service: 10:30 DS: Diagnosis Discharge Diagnosis (1) Thyroid storm: Status: Acute (2) Atrial fibrillation with RVR: Status: Acute (3) Heart failure, systolic, with acute decompensation: Status: Acute (4) Hyperbilirubinemia: Status: Acute (5) Respiratory failure with hypoxia: Status: Resolved (6) Severe hypertension: Status: Acute (7) Hypokalemia: Status: Acute (8) Pleural effusion due to CHF (congestive heart failure): Status: Acute (9) Syncope: Status: Acute (10) Nonsustained ventricular tachycardia: Status: Resolved Discharge Plan Disposition Patient Disposition: Home Condition: Improving Discharge Details Reason For Visit: Thyroid Storm Admit Date/Time: 06/23/22 21:33 Admit Provider: Priti Dias Attending Provider: Priti Dias Primary Care Provider: Unknown,Unknown Hospital Course Hospital Course: Ms Reina is a 61 year old female with PMHx of RA on methotrexate who was admitted to [facility] ICU on 06/23/22 with rapid Afib, acute CHF with pleural effusion, acute hypoxic respiratory failure, severe hypertension, all in setting of thyroid storm with TSH of <0.01 and FT4>8.00 ng/dL. Due to lack of methimazole at the time, the patient was started on PTU, hydrocortisone, cholestyramine. Her Afib was treated with digoxin and amiodarone as beta blockers were contraindicated due to acute CHF. The patient did have a syncopal episode in setting of micturation on the commode with HR of 200 and SBP of 190. A code was called as a rhythm change to nonsustained ventricular tachycardia was observed. The patient did become less tachycardic and hypertensive during this episode. She was also noted to be hypoxic requiring 7 L during episode, and preparations were being made to intubate her. However, she became arousable on her own and intubation was avoided. Her acute hypoxic respiratory failure was felt to be due to her CHF in setting of rapid rate and thyrotoxicosis. Her LVEF was 45% to 50% with mild global hypokinesis. She also had a degree of pulmonary hypertension with RVSP of 39 mmHg. She had mild to moderate mitral regurgitation. She was treated with IV furosemide. Her hypertension, also a part of thyroid storm, responded well to therapy for thyrotoxicosis. She was transferred out of the ICU on 06/25/22. Once her symptoms of this were better controlled, she did get started on propranolol and then switched to atenolol per recommendation of endocrinology. She was noted to also have hyperbilirubinemia which limited the use of PTU and necessitated the switch to methimazole. She received Lugol's solution. Once FT4 was documented to be consistently improving, we stopped hydrocortisone, per recommendation [place] [facility] [place] The patient was started on apixaban for her Afib, which is now rate controlled. She is being discharged home with several days of PO furosemide, but was able to get off of oxygen and did not require it on ambulation. Her respiratory failure has resolved with diuresis. Her thyroid US showed enlarged heterogenous hypervascular thyroid gland c/w diffuse thyroid disease. Her thyroperoxidase antibodies are >1300, and thyroglobulin antibody is 66. Her TSH receptor antibodies are pending. She is being referred to [place] [facility] [place] well as cardiology. She should also follow up with her PCP in 1-2 weeks. Care for patient as well as completion of her discharge summary on day of discharge took 60 minutes. Home Meds and New Rx's Prescriptions: New Eliquis 5 mg Tablet 5 mg PO BID Qty: 60 0RF atenolol 25 mg Tablet 25 mg PO BID Qty: 60 0RF potassium chloride 20 mEq Tablet,Er Particles/Crystals 20 meq PO DAILY Qty: 5 0RF furosemide 20 mg tablet 20 mg PO DAILY Qty: 5 0RF methimazole 10 mg tablet 40 mg PO DAILY Qty: 120 0RF Continued methotrexate sodium 2.5 MG tablet 12 mg PO QWeek Discharge Instructions Instructions: Atenolol (By mouth), Furosemide (By mouth), Methimazole (By mouth), Apixaban (By mouth), Heart Failure (DC), A-fib (Atrial Fibrillation) (DC), Hyperthyroidism (DC), Low-Sodium Diet (DC) Additional Instructions: Return to the hospital with any fever, bleeding, chest pain, or shortness of breath. [place] [facility] [place] [facility] [place] try to get you in this week, but call them on Tuesday. Follow up with cardiology in 1-2 weeks. Follow up with your PCP in 1-2 weeks. Stand Alone Forms: Nursing Discharge Form Referrals: Mary Torre MD [ [facility] STAFF PHYSICIAN] - (Call Tuesday to make an Appointment in the next 1-2 weeks ) MEÑO HAWKINS [ NON-[facility] STAFF PHYSICIAN] - (Urgent consult for next week; Thyrotoxicosis Call Tuesday ) Activity:: Activity as Tolerated Equipment/Supplies:: No Equipment Needed Diet:: Low Sodium Discharge Orders Discharge Orders: Discharge Order (Routine); Ordered 06/26/22 Ordered By: Nicole Talbot Discharge Data Discharge Date/Time-TO BE ENTERED AT DEPARTURE: 06/26/22 14:16 DS: Summary Time Spent with Patient providing and/or coordinating discharge services: Greater than 30 minutes Status at Discharge Functional status at discharge: independent ambulation Overall status at discharge: patient is progressing back to baseline Mental Status: mental status grossly normal Speech and Movement: speech and movement normal Mood: congruent mood Affect: normal affect Exam Narrative Exam Narrative: General: Pleasant female who is sitting comfortably in chair, not tremulous, A&Ox3, NAD HEENT: no proptosis or goiter, EOMI, MMM Heart: Irregularly irregular rhythm, no m/r/g Lungs:CTAB Abdomen: soft, nontender, nondistended Extremities: trace edema BLEs Psych Mental Status: mental status grossly normal Speech and Movement: speech and movement normal Mood: congruent mood Affect: normal affect DS: Data Vitals/I&O Vitals and I&O: Vital Signs Temperature 36.5 C 06/26/22 07:21 Temperature Source Tympanic 06/26/22 07:21 Pulse 80 06/26/22 07:21 Pulse Rhythm Irregular 06/26/22 07:50 Pulse 98 H 06/25/22 20:00 Respiratory Rate 18 06/26/22 07:21 Respiratory Effort Normal, Non-Labored 06/26/22 07:50 Respiratory Depth Normal 06/26/22 07:50 Respiratory Pattern Normal 06/26/22 07:50 Blood Pressure 167/79 H 06/26/22 07:21 Blood Pressure Mean 91 06/25/22 19:00 Blood Pressure Position Supine 06/25/22 12:00 Pulse Oximetry 93 06/26/22 07:21 Oxygen Delivery Method Room Air 06/26/22 07:21 Oxygen Flow Rate 0 06/26/22 07:21 Fraction of Inspired Oxygen (FIO2) 93 06/24/22 08:17 Pain Level 0 06/26/22 07:21 Comment RN notified 06/25/22 03:25 Intake & Output 06/25/22 06/25/22 06/26/22 11:59 23:59 11:59 Intake Total 250 / 836 586 / 836 Output Total 2575 / 2850 275 / 2850 1400 / 1400 Balance -2324 / -2013 -1399 / -1400 Intake: Oral 250 / 836 586 / 836 Output: Urine 2575 / 2850 275 / 2850 1400 / 1400 Other: Urine Color Pale Yellow Yellow Yellow Urine Appearance Clear Clear Cloudy Urine Odor Normal Strong Comment espinal in place, plan to d/c after a.m. lasix pt mixed with TP, unable to accurately measure Stool Size Small Stool Characteristics Soft Voiding Methods Toilet Toilet Data Completed and Pending Completed studies during hospitalization [Text1]: CTA chest 06/23/22: 1. No evidence of pulmonary embolism, thoracic aortic dissection or aneurysm.? 2. Findings suggestive CHF with cardiomegaly, bilateral pleural effusions and interstitial thickening.? Please correlate clinically. 3. Infiltrates in the lung bases, right greater than left.? This may reflect atelectasis but a superimposed pneumonia particularly in the right lower lobe cannot be excluded. 4. Small amount of abdominal ascites. Echo 06/24/22: Normal left ventricular wall thickness and chamber size.? Estimated ejection fraction is 45 to 50% with mild global hypokinesis The right ventricle is not well visualized Both atria are borderline dilated Aortic valve is mildly sclerotic trileaflet without stenosis or regurgitation Mildly thickened mitral leaflets.? Mild to moderate mitral regurgitation Normal tricuspid valve with mild to moderate regurgitation.? Estimated right ventricular systolic pressure is 39 mmHg Mildly dilated ascending aorta measuring 3.61 cm US thyroid 06/24/22: There is enlarged heterogeneous hypervascular thyroid gland. These findings can be seen with diffuse thyroid disease such as can occur with Graves disease among other etiologies. Please correlate clinically. Labs on day of discharge: Labs from last 24 hours 06/26/22 06/26/22 06/25/22 07:20 07:20 Unknown Sodium 140 Potassium 3.5 Chloride 110 H Carbon Dioxide 28.1 Anion Gap 1.9 L BUN 34 H Creatinine 0.6 Est GFR (CKD-EPI 2020) 101.42 Glucose 140 H Calcium 9.5 Total Bilirubin Free T4 3.30 H Total T3 Add-On Test Request DONE 06/25/22 06/25/22 06/25/22 15:30 15:30 06:20 Sodium Potassium Chloride Carbon Dioxide Anion Gap BUN Creatinine Est GFR (CKD-EPI 2020) Glucose Calcium Total Bilirubin 0.7 Free T4 4.06 H Total T3 Pending Add-On Test Request Preliminary micro results at discharge 06/23/22 23:55 Blood Culture - Preliminary Blood NO GROWTH 48 HOURS 06/23/22 23:50 Blood Culture - Preliminary Blood NO GROWTH 48 HOURS PFSH All Active Problems (Updated 06/29/22 @ 10:51 by Nicole Talbot MD) Syncope (Acute) Hypokalemia (Acute) Pleural effusion due to CHF (congestive heart failure) (Acute) Heart failure, systolic, with acute decompensation (Acute) Severe hypertension (Acute) Hyperbilirubinemia (Acute) Atrial fibrillation with RVR (Acute) Thyroid storm (Acute) Medical History Microcytic hypochromic anemia Rheumatoid arthritis Weight loss Surgical History Colonoscopy - MAC (04/01/17) Social History Smoking/Tobacco Use Status: Never Smoking risk assessment performed?: Yes Drug use: Never Time Spent with Patient Time Spent with Patient: 45-69 minutes Time was spent: preparing to see the patient(eg.review tests), obtaining and/or reviewing separately otained hiistory, ordering medications,tests, procedures, referring, communicating with other health specialist wound care, indepentently interpreting results, counseling the patient and care coordination
[2022-06-26] MEDS: methIMAzole 5 MG TAB 40 MG PO (11:02)
--- NOTE | 2022-06-26 18:35 | PDOC.CMDIS ---
- If Service Date Differs Date of service: 06/26/22 Time of Service: 18:35 LACE Index Scoring Tool - Questions: Length of Stay (in days): 3 Acuity (Admit via E.D.?): Yes E.D. Visits: 1 - Answers: Total Score: 7 Risk of Readmission: Low Risk Care Management Discharge Reason for Hospitalization: Thyroid storm Discharge Plan: Sindhu is discharged home with no services. She will [place] [facility] [place] and plan of care as instructed. She is transported home via private vehicle by family. Patient/Family Education Needs: Review of discharge instructions including medications, limitations and follow up plan of care; discuss Ask Me Three and self management.
[2022-06-26 22:38] LABS: T3, Total 212 ng/dL (97-169)
[2022-06-27 08:13] LABS: Lab Add On Test DONE
[2022-06-29 20:30] LABS: Thyrotropin Receptor Ab 4.64 IU/L
[2022-07-01 18:28] LABS: Acetaminophen, Urine NEGATIVE
[2022-07-01 22:09] LABS: Lab Add On Test DONE
== END 2022-06-26 14:16 | disposition home or self-care (01) | DRG 643 ==
LOC: ER 21:39 → ICU 22:54 → MS 06-25 20:53
PROVIDERS: Family Medicine; Internal Medicine; Admitting Provider Student in an Organized Health Care Education/Training Program; Emergency Provider Student in an Organized Health Care Education/Training Program; Visit Provider Student in an Organized Health Care Education/Training Program
DX: E05.91 Thyrotoxicosis, unspecified with thyrotoxic crisis or storm (principal); I50.21 Acute systolic (congestive) heart failure; J96.01 Acute respiratory failure with hypoxia; I48.91 Unspecified atrial fibrillation; E80.6 Other disorders of bilirubin metabolism; M06.9 Rheumatoid arthritis, unspecified; Z79.69 Long term (current) use of other immunomodulators and immunosuppressants; R55 Syncope and collapse; I11.0 Hypertensive heart disease with heart failure
CPT/HCPCS: 36415; 71275; 80048; 80053; 80307; 82550; 85027; 85384; 86376; 87040; 87637; 93005; 93308; 94618; 96374; 96375; 99291; 99292; 76536; 80329; 81003; 81015; 82247; 83735; 83880; 84100; 84235; 84436; 84439; 84443; 84480; 84484; 85025; 85379; 85610; 85730; 93010; 93306; 99233; 99239; J1160; J1720; J1940; J1941; J3490

== ENCOUNTER 2022-07-16 12:47 | Outpatient (CLI) | payer BC, SELFPAY ==
--- NOTE | 2022-07-16 12:45 | RT.EKG_ITS ---
APPROVED REPORT Exam: Resting ECG Reason for Exam: New patient visit Patient Location: O HR:124 bpm ECG Measurements Heart Rate 124 AXIS UT [id number] P [id number] QRSd 78 QRS -7 QT 351 T 46 QTc 505 Conclusion Atrial fibrillation...V-rate 102-156, irreg A-activity Possible anterior infarct, old...Q >40mS, abnormal ST-T, V2-V5 Low voltage
== END 2022-07-16 12:48 | disposition home or self-care (01) ==
LOC: DI.CARD 12:48
PROVIDERS: PCP Nurse Practitioner Family; Visit Provider Internal Medicine Cardiovascular Disease
DX: I48.91 Unspecified atrial fibrillation (principal); I25.2 Old myocardial infarction
CPT/HCPCS: 93010

== ENCOUNTER 2022-08-18 03:01 | Outpatient (CLI) | payer BC, SELFPAY ==
[2022-08-18 17:35] LABS: FREE T4 1.32 ng/dL (0.76-1.46)
[2022-08-18 17:36] LABS: TSH < 0.01 uIU/mL (0.36-3.74)
== END 2022-08-18 03:02 | disposition home or self-care (01) ==
PROVIDERS: PCP Nurse Practitioner Family; Visit Provider Student in an Organized Health Care Education/Training Program
DX: E05.90 Thyrotoxicosis, unspecified without thyrotoxic crisis or storm (principal)
CPT/HCPCS: 36415; 84439; 84443

== ENCOUNTER 2022-08-27 10:47 | Outpatient (CLI) | payer BC, SELFPAY ==
--- NOTE | 2022-08-27 10:45 | RT.EKG_ITS ---
APPROVED REPORT Exam: Resting ECG Reason for Exam: Rhythm change Patient Location: O HR:56 bpm ECG Measurements Heart Rate 56 AXIS TN 129 P 30 QRSd 81 QRS 2 QT 485 T 42 QTc 469 Conclusion Sinus rhythm...normal P axis, V-rate 50- 99 Poor R wave progression
== END 2022-08-27 10:48 | disposition home or self-care (01) ==
LOC: DI.CARD 10:48
PROVIDERS: PCP Nurse Practitioner Family; Visit Provider Internal Medicine Cardiovascular Disease
DX: I48.91 Unspecified atrial fibrillation (principal)
CPT/HCPCS: 93010

== ENCOUNTER 2022-10-19 09:35 | Outpatient (CLI) | payer BC, SELFPAY ==
[2022-10-19 15:24] LABS: FREE T4 0.52 ng/dL (0.76-1.46); TSH 0.79 uIU/mL (0.36-3.74)
== END 2022-10-19 09:36 | disposition home or self-care (01) ==
LOC: LBO 09:36
PROVIDERS: PCP Nurse Practitioner Family; Visit Provider Student in an Organized Health Care Education/Training Program
DX: E05.90 Thyrotoxicosis, unspecified without thyrotoxic crisis or storm (principal)
CPT/HCPCS: 36415; 84439; 84443

== ENCOUNTER 2022-11-29 02:47 | Outpatient (CLI) | payer BC, SELFPAY ==
[2022-11-29 13:07] LABS: FREE T4 0.66 ng/dL (0.76-1.46); TSH 2.52 uIU/mL (0.36-3.74)
== END 2022-11-29 02:48 | disposition home or self-care (01) ==
LOC: LOS 02:47
PROVIDERS: PCP Nurse Practitioner Family; Visit Provider Student in an Organized Health Care Education/Training Program
DX: E05.90 Thyrotoxicosis, unspecified without thyrotoxic crisis or storm (principal)
CPT/HCPCS: 36415; 84439; 84443

== ENCOUNTER 2022-12-23 04:05 | Outpatient (CLI) | payer BC, SELFPAY ==
[2022-12-23 16:40] LABS: TSH 5.67 uIU/mL (0.36-3.74)
== END 2022-12-23 04:06 | disposition home or self-care (01) ==
LOC: LBO 04:05
PROVIDERS: PCP Nurse Practitioner Family; Visit Provider Student in an Organized Health Care Education/Training Program
DX: E05.90 Thyrotoxicosis, unspecified without thyrotoxic crisis or storm (principal)
CPT/HCPCS: 36415; 84439; 84443

== ENCOUNTER 2023-05-16 05:39 | Outpatient (CLI) | payer BC, SELFPAY ==
[2023-05-16 12:53] LABS: FREE T4 0.91 ng/dL (0.76-1.46)
== END 2023-05-16 05:40 | disposition home or self-care (01) ==
LOC: LOS 05:39
PROVIDERS: PCP Nurse Practitioner Family; Visit Provider Student in an Organized Health Care Education/Training Program
DX: E05.90 Thyrotoxicosis, unspecified without thyrotoxic crisis or storm (principal)
CPT/HCPCS: 36415; 84439; 84443

== ENCOUNTER 2023-06-28 03:21 | Outpatient (CLI) | payer BC, SELFPAY ==
[2023-06-28 12:32] LABS: FREE T4 1.12 ng/dL (0.76-1.46)
[2023-06-30 19:15] LABS: Thyroid Stimulating Immunoglob 3.7 TSI index (<=1.3)
== END 2023-06-28 03:22 | disposition home or self-care (01) ==
LOC: LOS 03:22
PROVIDERS: PCP Nurse Practitioner Family; Visit Provider Student in an Organized Health Care Education/Training Program
DX: E05.00 Thyrotoxicosis with diffuse goiter without thyrotoxic crisis or storm (principal)
CPT/HCPCS: 36415; 84439; 84443; 84445

== ENCOUNTER 2023-08-23 05:16 | Outpatient (CLI) | payer BC, SELFPAY ==
[2023-08-23 12:41] LABS: FREE T4 1.12 ng/dL (0.76-1.46); TSH 0.37 uIU/Ml (0.36-3.74)
== END 2023-08-23 05:17 | disposition home or self-care (01) ==
LOC: LOS 05:16
PROVIDERS: PCP Nurse Practitioner Family; Visit Provider Student in an Organized Health Care Education/Training Program
DX: E05.00 Thyrotoxicosis with diffuse goiter without thyrotoxic crisis or storm (principal)
CPT/HCPCS: 36415; 84439; 84443

== ENCOUNTER 2024-06-28 07:52 | Outpatient (CLI) | payer BC, SELFPAY ==
--- NOTE | 2024-06-28 07:52 | RT.EKG_ITS ---
APPROVED REPORT Exam: Resting ECG Reason for Exam: afib Patient Location: O HR:44 bpm ECG Measurements Heart Rate 44 AXIS SD 147 P 20 QRSd 95 QRS -10 QT 471 T 3 QTc 403 Conclusion Sinus bradycardia...rate< 50 Poor R wave progression
== END 2024-06-28 07:53 | disposition home or self-care (01) ==
LOC: DI.CARD 07:53
PROVIDERS: PCP Nurse Practitioner Family; Visit Provider Internal Medicine Cardiovascular Disease
DX: I48.0 Paroxysmal atrial fibrillation (principal); I47.29 Other ventricular tachycardia
CPT/HCPCS: 93010